=== PATIENT | female | born 1955 | race Caucasian/White ===

== ENCOUNTER 2020-04-06 10:33 | Outpatient (CLI) | payer MEDICARE, OTHER, SELFPAY ==
--- NOTE | 2020-04-11 21:52 | WPDSIXMINUTE ---
Six Minute Walk Six Minute Walk: DOS: 04/06/2020 REQUESTING: Dr. Rebecca Yepez REASON FOR TESTING: Severe COPD; Phase 2 Pulmonary rehab SIX MINUTE WALK This test was conducted per ATS guidelines. The initial saturation was 95% on 2 L/min at the start of the test. Initial pulse was 92 beats per minute. The patient walked 1000 feet / 304 meters. O2 was increased to 3 L/minute at the 3 minute robert then increased to 4 L/min at the 4 minute robert. The final saturation was 88% on 4 L/min, and pulse was 130. The patient did not stop to rest. IMPRESSION: Supplemental oxygen at 4 L/min is sufficient with exertion. Distance walked is lower than expected for age. There is no prior study for comparison. Initial saturation was 95% on 2 L/min, suggesting that that she may tolerate a lower O2 flow at rest.
== END 2020-04-06 10:34 | disposition home or self-care (01) ==
PROVIDERS: PCP Internal Medicine
DX: J44.9 Chronic obstructive pulmonary disease, unspecified (principal)
CPT/HCPCS: 94618

== ENCOUNTER 2020-06-28 11:00 | Outpatient (RCR) | payer MEDICARE, OTHER, SELFPAY ==
--- NOTE | 2020-04-22 08:51 | PCCPR ---
PT CXL SESSION TODAY DUE TO UTI
== END 2020-06-28 23:59 | disposition home or self-care (01) ==
LOC: ANHCPREHAB 11:00
PROVIDERS: PCP Internal Medicine
DX: J44.9 Chronic obstructive pulmonary disease, unspecified (principal)
CPT/HCPCS: 97150; G0424

== ENCOUNTER 2020-07-02 10:16 | Outpatient (CLI) | payer MEDICARE, OTHER, SELFPAY ==
--- NOTE | ~2020-07-02 | CT_ITS ---
EXAMINATION:CT lung screening DATE: 07/02/2020 10:41 INDICATION: Personal history of tobacco dependence. Smoker who quit 12 years ago with 76 pack year hi story. TECHNIQUE: Computed tomography (CT) of the chest was performed without intravenous contrast. Automate d exposure control and iterative reconstruction technique were employed. The dose-length product (DLP ) was 147.67 mGy-cm. COMPARISON: None. FINDINGS: There is severe emphysema. There is mild atelectasis bilaterally. There is a 2 mm nodule in right upper lobe. There is a 2 mm nodule in right lower lobe. No pleural effusion. The heart size is normal. There are coronary artery calcifications. No pericardial effusion. The central pulmonary art eries are enlarged, consistent with pulmonary arterial hypertension. There is diffuse hepatic steatos is. There is severe thoracic spondylosis. There is chronic height loss of multiple vertebral bodies. IMPRESSION: 1. Lung-RADS category 2: Benign appearance or behavior. Continue annual screening with noncontrast lo w-dose chest CT in 12 months. Reviewed, dictated and finalized at location A. [employer] IMPRESSION: 1. Lung-RADS category 2: Benign appearance or behavior. Continue annual screeni ng with noncontrast low-dose chest CT in 12 months.
== END 2020-07-02 10:17 | disposition home or self-care (01) ==
PROVIDERS: PCP Internal Medicine; Visit Provider Internal Medicine
DX: Z12.2 Encounter for screening for malignant neoplasm of respiratory organs (principal); Z87.891 Personal history of nicotine dependence
CPT/HCPCS: G0297

== ENCOUNTER 2020-07-11 13:30 | Outpatient (RCR) | payer MEDICARE, OTHER, SELFPAY | END 2020-07-11 19:16 | disposition home or self-care (01) | LOC: ANHCPREHAB 13:30 | PROVIDERS: PCP Internal Medicine | DX: J44.9 Chronic obstructive pulmonary disease, unspecified (principal) | CPT/HCPCS: 97150; G0424 ==

== ENCOUNTER 2020-08-11 11:04 | Outpatient (CLI) | payer MEDICARE, OTHER, SELFPAY ==
--- NOTE | 2020-08-11 17:24 | WPDSIXMINUTE ---
Six Minute Walk This is a 6 minutes walk for exertional dyspnea. Findings: The patient's resting oxygen saturation on home setting of 4 L NC oxygen was 76% and her heart rate was 86 bpm. Patient ambulated for 396.2 meters and oxygen saturation remained 93-99%. Heart rate at the end of the study was 115 bpm. There are no prior studies for comparison.
== END 2020-08-11 11:05 | disposition home or self-care (01) ==
PROVIDERS: PCP Internal Medicine
DX: J44.9 Chronic obstructive pulmonary disease, unspecified (principal)
CPT/HCPCS: 94618

== ENCOUNTER 2021-06-23 09:13 | Outpatient (CLI) | payer MEDICARE, OTHER, SELFPAY ==
--- NOTE | ~2021-06-23 | CT_ITS ---
EXAMINATION:CT lung screening DATE: 06/23/2021 10:08 INDICATION: Personal history of tobacco dependence. Smoker who quit 13 years ago with 120 pack year h istory. TECHNIQUE: Computed tomography (CT) of the chest was performed without intravenous contrast. Automate d exposure control and iterative reconstruction technique were employed. The dose-length product (DLP ) was 116.95 mGy-cm. COMPARISON: CT 07/02/2020 FINDINGS: There is severe emphysema. There is mild atelectasis bilaterally. There is a stable 2 mm no dule in right upper lobe. There is a stable 2 mm nodule in right lower lobe. No pleural effusion. The heart size is normal. There are coronary artery calcifications. No pericardial effusion. Main pulmon ning artery is enlarged, consistent with pulmonary arterial hypertension. There is moderate thoracic s pondylosis. There is chronic height loss of multiple vertebral bodies. IMPRESSION: 1. Lung-RADS category 2: Benign appearance or behavior. Continue annual screening with noncontrast lo w-dose chest CT in 12 months. Reviewed, dictated and finalized at location A. [employer] IMPRESSION: 1. Lung-RADS category 2: Benign appearance or behavior. Continue annual screeni ng with noncontrast low-dose chest CT in 12 months.
== END 2021-06-23 09:14 | disposition home or self-care (01) ==
LOC: ANHIMG 09:23
PROVIDERS: PCP Internal Medicine
DX: Z12.2 Encounter for screening for malignant neoplasm of respiratory organs (principal); Z87.891 Personal history of nicotine dependence; J43.9 Emphysema, unspecified
CPT/HCPCS: 71271

== ENCOUNTER 2021-06-24 12:31 | Emergency (ER) | payer MEDICARE, OTHER, SELFPAY ==
--- NOTE | ~2021-06-24 | XR_ITS ---
EXAMINATION: XR chest 2V EXAM DATE: 06/24/2021 13:16 INDICATION: Congestion, cough, COPD. Symptoms 2 days. TECHNIQUE: Frontal and lateral projections of the chest obtained and reviewed. Comparison is made to prior examination from 05/20/2012. FINDINGS: The lungs are hyperinflated which can be seen with chronic obstructive pulmonary disease ( a clinical diagnosis of functional impairment), but is not diagnostic of it. The lungs are clear. Th ere are no pleural effusions. The cardiomediastinal silhouette is within normal limits. There is no pneumothorax suspected. The bones and soft tissues are unremarkable. There is aortic arterioscler osis. IMPRESSION: 1. No acute cardiopulmonary findings. 2. Hyperinflation. Reviewed, dictated and finalized at location A. [employer]
--- NOTE | 2021-06-24 12:37 | ED.URI ---
HPI - URI/Sore Throat General Chief Complaint: Chest Pain Stated Complaint: Chest Congestion/Cough Time Seen by Provider: 06/24/21 12:37 Source: patient and RN notes reviewed History of Present Illness HPI Narrative: Patient is a 65-year-old female who presents the urgent care with complaints of chest congestion, chest tightness and cough. Patient states that she has had some upper respiratory symptoms with postnasal drainage since . Patient states that these are her normal symptoms whenever she gets sick however she has not been sick in some time . Patient denies of any known exposure to Covid and has had a Covid vaccine. Patient states that she has been taking Tylenol for low-grade fever otherwise has not taken anything [id number] for her symptoms. Patient denies of any chest pain. States that she does have COPD and uses oxygen, 2 L, at home. Patient states she is supposed to be wearing it outside of the home and does not . Denies of any radiation of the chest tightness. No acute distress noted. Patient aware of the plan of care. Some parts of this dictation were generated by voice recognition software and may contain typographical and/or grammatical inaccuracies. Related Data Home Medications Medication Instructions Recorded Confirmed alprazolam 0.25 mg PO HS PRN 03/31/20 03/31/20 aspirin 81 mg PO DAILY 03/31/20 03/31/20 cholecalciferol (vitamin D3) 100 mcg PO DAILY 03/31/20 03/31/20 [Vitamin D3] clopidogrel [Plavix] 75 mg PO DAILY 03/31/20 03/31/20 furosemide 40 mg PO DAILY 03/31/20 03/31/20 levothyroxine 137 mcg PO DAILY 03/31/20 03/31/20 metformin 500 mg PO DAILY 03/31/20 03/31/20 pantoprazole 40 mg PO QAM PRN 03/31/20 03/31/20 perphenazine 2 mg PO HS 03/31/20 03/31/20 polyethylene glycol 3350 [Miralax] 17 g PO DAILY 03/31/20 03/31/20 potassium chloride 10 meq PO DAILY 03/31/20 03/31/20 pravastatin 80 mg PO DAILY 03/31/20 03/31/20 vitamin B complex 1 tablet WEEKLY 03/31/20 03/31/20 amitriptyline 25 mg PO HS 04/01/20 04/01/20 Allergies Allergy/AdvReac Type Severity Reaction Status Date / Time levofloxacin [From Levaquin] Allergy Unknown Verified 06/24/21 12:53 Review of Systems Review of Systems: CONSTITUTIONAL: Reports of fevers and chills EYES: Denies visual changes, redness, or discharge. ENT: Denies rhinorrhea, congestion, sore throat, or otalgia. Reports of postnasal drainage CARDIOVASCULAR: Denies chest pain, palpitations, or edema. RESPIRATORY: Reports of increased dyspnea and cough GASTROINTESTINAL: Denies abdominal pain, nausea, vomiting, or diarrhea. GENITOURINARY: Denies dysuria or hematuria. SKIN: Denies rash or itching. MUSCULOSKELETAL: Denies back pain, joint pain, or myalgia. NEUROLOGIC: Denies headache, numbness, or weakness. All other systems reviewed are negative, except as documented in HPI. PMFSH Social History Social History Smoking packs per day: 2 Smoking cigarettes per day: 40.0 Years smoked: 38 Smoking pack-years: 76.00 Smoking status: Former smoker Tobacco type: cigarettes Smoking end date: 06/05/20 Gender identity (if verbalized by the patient): Female Comments At the time of my signature, I reviewed and agree with the nursing past medical, surgical, social, and family history. There is no relevant family history pertinent to the patient complaint. Exam Narrative: GENERAL: This is a well-nourished, well-developed patient, in no apparent distress. HEAD: normocephalic, atraumatic. EYES: PERRL. Sclera clear/white. Vision is grossly intact. EARS: External ears normal, auditory canals clear and without drainage, TMs normal without perforation. Hearing grossly intact. NOSE: External nose normal with no obvious nasal discharge, nares without redness, clear rhinorrhea. THROAT: Mucous membranes moist, posterior pharynx clear. Moderate postnasal drainage NECK: Neck supple CARDIOVASCULAR: Regular rate and rhythm RESPIRATORY: Decreased lung sounds in t
[2021-06-24 12:54] VITALS: BP 148/77; PULSE 102; RESP 22; TEMP 37.1; O2SAT 89
[2021-06-24] MEDS: predniSONE 20 MG TABLET 60 MG PO (13:43)
--- NOTE | 2021-06-26 14:33 | ECG_ITS ---
Measurements Intervals [place] Rate: 89 P: 78 CA: 182 QRS: 82 QRSD: 100 T: 74 QT: 355 QTc: 434 Interpretive Statements SINUS RHYTHM INCOMPLETE RIGHT BUNDLE BRANCH BLOC BORDERLINE ST-T WAVE ABNORMALITY- DIFFUSE LEADS BASELINE ARTIFACT- I, II, III, AVF, V1-V6 BORDERLINE ECG Electronically Signed On 06-26-2021 15:10:39 SKEIN DRIER by Edgardo Brown D.O.
== END 2021-06-24 13:49 | disposition home or self-care (01) ==
PROVIDERS: Emergency Provider Nurse Practitioner Family
DX: J44.1 Chronic obstructive pulmonary disease with (acute) exacerbation (principal); Z87.891 Personal history of nicotine dependence; Z86.73 Personal history of transient ischemic attack (TIA), and cerebral infarction without residual deficits; E78.00 Pure hypercholesterolemia, unspecified; G47.30 Sleep apnea, unspecified; E03.9 Hypothyroidism, unspecified; F32.9 Major depressive disorder, single episode, unspecified; R73.03 Prediabetes; Z20.822 Contact with and (suspected) exposure to COVID-19
CPT/HCPCS: 71046; 87426; 93005; 99213; C9803; G0463; J7512

== ENCOUNTER 2024-01-02 09:19 | Emergency (ER) | payer MEDICARE, SELFPAY ==
[2024-01-02 09:28] VITALS: BP 154/86; PULSE 109; RESP 18; TEMP 38.3; O2SAT 97
--- NOTE | 2024-01-02 09:32 | ED.URI ---
HPI - URI/Sore Throat General Chief Complaint: Upper Respiratory Infection Stated Complaint: chills/aches/cough/chest heavy Time Seen by Provider: 01/02/24 09:32 Source: patient, RN notes reviewed and old records reviewed Mode of arrival: ambulatory Limitations: no limitations History of Present Illness HPI Narrative: 68-year-old female to Express Care for complaint of body aches, chills, dry cough, fever that started yesterday. Patient treated at home with Tylenol last night and reports improvement. patient reports exposure recently to someone who is COVID positive. Patient denies shortness of breath, chest pain. Patient hypertensive, tachycardic, febrile in triage. Patient appears tired in exam room. Respirations even and nonlabored. no signs of acute distress. Related Data Home Medications Medication Instructions Recorded Confirmed aspirin 81 mg chewable tablet 81 mg PO DAILY 03/31/20 01/02/24 clopidogrel 75 mg tablet (Plavix) 75 mg PO DAILY 03/31/20 01/02/24 furosemide 40 mg tablet 40 mg PO BID 03/31/20 01/02/24 metformin 500 mg tablet 500 mg PO DAILY 03/31/20 01/02/24 polyethylene glycol 3350 17 17 g PO DAILY 03/31/20 01/02/24 gram/dose oral powder (Miralax) vitamin B complex 1 tablet PO WEEKLY 03/31/20 01/02/24 amitriptyline 25 mg tablet 25 mg PO HS 04/01/20 01/02/24 ezetimibe 10 mg PO DAILY 06/24/21 01/02/24 pantoprazole 40 mg tablet,delayed 40 mg PO DAILY 06/24/21 01/02/24 release potassium chloride 10 mEq 10 meq PO DAILY 06/24/21 01/02/24 tablet,extended release pravastatin 80 mg tablet 80 mg PO DAILY 06/24/21 01/02/24 quetiapine 25 mg tablet 25 mg PO HS 06/24/21 01/02/24 alprazolam 0.5 mg tablet 0.5 mg PO TID PRN Anxiety 01/02/24 01/02/24 levothyroxine 112 mcg tablet 112 mcg PO DAILY 01/02/24 01/02/24 Allergies Allergy/AdvReac Type Severity Reaction Status Date / Time levofloxacin [From Levaquin] Allergy Hives Verified 01/02/24 09:34 Review of Systems Review of Systems: All systems reviewed & are unremarkable except as noted in HPI and below Constitutional: Constitutional: Reports as per HPI, Reports body ache(s), Reports chills and Reports fever(s) Eyes: Eyes: Reports no additional eye complaints ENT: Reports system reviewed and no additional complaints, except as documented Cardiovascular: Cardiovascular: Reports no additional cardiovascular complaints, Denies chest pain and Denies dyspnea Respiratory: Respiratory: Reports no additional respiratory complaints, Reports cough and Denies dyspnea Musculoskeletal: Musculoskeletal: Reports no additional musculoskeletal complaints Neurologic: Reports system reviewed and no additional complaints, except as documented Psychiatric: Psychiatric: Reports no additional psychiatric complaints PMFSH Social History Social History Smoking packs per day: 2 Smoking cigarettes per day: 40.0 Years smoked: 38 Smoking pack-years: 76.00 Smoking status: Former smoker Tobacco type: cigarettes Smoking end date: 06/05/20 Gender identity (if verbalized by the patient): Female Comments At the time of my signature, I reviewed and agree with the nursing past medical, surgical, social, and family history. There is no relevant family history pertinent to the patient complaint. Exam Const: General: cooperative, no acute distress, well developed, alert, tired appearing, uncomfortable and well nourished Nutritional Appearance: well nourished Orientation/consciousness: patient oriented x3 Limitations: no limitations HENMT: Head: normal to inspection Ears: external ears normal Face/Nose/Sinus: Normal external nose present, Normal nares present, normal facial exam, No erythema and No edema Face and sinus: normal facial exam, no erythema and no edema Mouth: Yes Normal oral and palatal mucosa present Throat: posterior oropharynx abnormal erythema Eyes: General: appearance normal, both ey
== END 2024-01-02 10:00 | disposition home or self-care (01) ==
PROVIDERS: Emergency Provider Nurse Practitioner Family; PCP Internal Medicine
DX: U07.1 COVID-19 (principal); Z87.891 Personal history of nicotine dependence; Z79.82 Long term (current) use of aspirin; Z86.73 Personal history of transient ischemic attack (TIA), and cerebral infarction without residual deficits; E78.00 Pure hypercholesterolemia, unspecified; J44.9 Chronic obstructive pulmonary disease, unspecified; G47.30 Sleep apnea, unspecified; R73.03 Prediabetes; E03.9 Hypothyroidism, unspecified; F32.A Depression, unspecified
CPT/HCPCS: 87426; 87804; 99213; G0463

== ENCOUNTER 2024-05-30 09:22 | Emergency (ER) | payer MEDICARE, SELFPAY ==
--- NOTE | ~2024-05-30 | XR_ITS ---
EXAMINATION: XR chest 2V DATE: 05/30/2024 10:03 INDICATION: Shortness of breath. TECHNIQUE: Frontal and lateral views of the chest were obtained. COMPARISON: Chest 2 views 06/24/2021, chest CT 06/23/2021 FINDINGS: There is mild atelectasis at the lung bases. No pleural effusion or pneumothorax. The heart size is normal. There is mild chronic anterior wedging of multiple mid thoracic vertebral bodies. IMPRESSION: 1. Mild atelectasis at the lung bases. Reviewed, dictated and finalized at location A.
[2024-05-30 09:36] VITALS: BP 143/73; PULSE 96; RESP 20; TEMP 37.2; O2SAT 92
--- NOTE | 2024-05-30 09:43 | ED_ITS ---
HPI - URI/Sore Throat General Chief Complaint: Upper Respiratory Infection Stated Complaint: Chills/Chest Congestion Time Seen by Provider: 05/30/24 09:46 Source: patient, RN notes reviewed and old records reviewed Mode of arrival: ambulatory Limitations: no limitations History of Present Illness HPI Narrative: 68 year old female who presents to [facility] care with complaints of dry cough, chills,low grade fever, sneezing, chest tightness and burning with ear pain and sore throat since Saturday. Patient does have history of COPD and using daily inhalers and also using rescue inhaler and nebulizer. MD elicited complaint: fever, cough, sore throat, rhinorrhea, nasal congestion and other (chills) Pertinent past history: COPD and other (FORMER tobacco abuse) Onset (ago): day(s) (5) Consistency: constant Pain scale (0-10): 5 Description of mucous: clear Able to tolerate fluids by mouth: Yes Treatments prior to arrival: acetaminophen and other (inhalers and Albuterol inhaler and nebs) Related Data Home Medications Medication Instructions Recorded Confirmed clopidogrel 75 mg tablet (Plavix) 75 mg PO DAILY 03/31/20 05/30/24 furosemide 40 mg tablet 40 mg PO BID 03/31/20 05/30/24 metformin 500 mg tablet 500 mg PO BID 03/31/20 05/30/24 vitamin B complex 1 tablet PO WEEKLY 03/31/20 05/30/24 amitriptyline 25 mg tablet 25 mg PO HS 04/01/20 05/30/24 pantoprazole 40 mg tablet,delayed 40 mg PO DAILY 06/24/21 05/30/24 release potassium chloride 10 mEq 10 meq PO DAILY 06/24/21 05/30/24 tablet,extended release pravastatin 80 mg tablet 80 mg PO DAILY 06/24/21 05/30/24 quetiapine 25 mg tablet 25 mg PO HS 06/24/21 05/30/24 alprazolam 0.5 mg tablet 0.5 mg PO TID PRN Anxiety 01/02/24 05/30/24 levothyroxine 112 mcg tablet 112 mcg PO DAILY 01/02/24 05/30/24 aspirin 81 mg tablet,delayed 81 mg PO DAILY 05/30/24 05/30/24 release (Adult Low Dose Aspirin) ezetimibe 10 mg tablet 10 mg PO DAILY 05/30/24 05/30/24 Allergies Allergy/AdvReac Type Severity Reaction Status Date / Time levofloxacin [From Levaquin] Allergy Hives Verified 05/30/24 09:54 Review of Systems Review of Systems: CONSTITUTIONAL: Reports malaise, chills, sweats, low grade fever. EYES: Denies visual changes, redness, or discharge. ENT: Reports rhinorrhea, congestion, no sinus pain,bilateral otalgia and positive for sore throat. CARDIOVASCULAR: Denies chest pain reports tightness, no palpitations, or edema. RESPIRATORY: Reports cough.?Reports dyspnea.with exertion GASTROINTESTINAL: Denies abdominal pain, nausea, vomiting, diarrhea SKIN: Denies rash or itching. MUSCULOSKELETAL: Denies myalgia. NEUROLOGIC: Denies headache. All systems reviewed & are unremarkable except as noted in HPI and below PMFSH Past Medical History Medical History Anxiety Constipation COPD (chronic obstructive pulmonary disease) CVA (cerebral vascular accident) Depression Elevated cholesterol Hypertension Hypothyroid EV on CPAP with oxygen at night Surgical History Surgical History H/O: hysterectomy Social History Social History Smoking packs per day: 2 Smoking cigarettes per day: 40.0 Years smoked: 38 Smoking pack-years: 76.00 Smoking status: Former smoker Tobacco type: cigarettes Smoking end date: 06/05/20 Gender identity (if verbalized by the patient): Female Comments At time of signature, agree with nursing past medical, surgical, social and family history. There is no relevant family history pertinent to the presenting complaint Exam Narrative: GENERAL: Chronic ill -appearing, well-nourished, and in no acute distress. HEAD: Normocephalic EYES: PERRLA, conjunctivae clear ENT: Nares clear, turbinates edematous and erythematous, clear discharge. Mucous membranes moist. TM pearly lyons with dull light reflex bilaterally; no tragal tenderness. Oropharynx erythematous without lesions. Tonsils not enlarged and without exudate, no drooling, no hoarseness, no trismus, uvula midline.some post nasal discharge NECK: Supple. No lymphadenopathy CHEST: Decreased faint crackles lung bases on auscultation, breath sounds equal. No wheezing, rhonchi, bases rales, no stridor. No respiratory distress, speaks in full sentences, dry cough noted, SAO2 92% on room air no tachypnea noted, history of COPD HEART: Regular rate and rhythm. No murmur heard. SKIN: Warm, dry, no rash. NEURO: Alert and oriented x3. PSYCH: Normal mood and affect Course Course Emergency Course: Patient is aware of diagnosis, understands and agrees to treatment plan.? Anticipatory guidance given.? Patient agrees to follow-up as directed and is aware of reasons to seek care at the emergency department. Portions of this record may have been created with voice recognition software Level of Care: Express Care Visit Vital Signs Vital signs: Vital Signs Temperature 37.2 C 05/30/24 09:36 Pulse Rate 96 05/30/24 09:36 Respiratory Rate 20 05/30/24 09:36 Blood Pressure 143/73 H 05/30/24 09:36 Pulse Oximetry 92 05/30/24 09:36 Oxygen Delivery Room Air 05/30/24 09:36 Temperature 37.2 C 05/30/24 09:36 Pulse Rate 96 05/30/24 09:36 Respiratory Rate 20 05/30/24 09:36 Blood Pressure 143/73 H 05/30/24 09:36 Pulse Oximetry 92 05/30/24 09:36 Oxygen Delivery Room Air 05/30/24 09:36 Reviewed MDM - URI/Sore Throat MDM Narrative Medical decision making narrative: Differential diagnosis considered: Mccollum virus, strep pharyngitis, allergic rhinitis, upper respiratory tract infection, sinusitis, rhinosinusitis, nasopharyngitis. viral pharyngitis, otitis media, otitis externa, pneumonia, bronchitis, viral cough syndrome, viral syndrome, and influenza.? Exam findings show no acute concerns or changes; patient is non-toxic appearing and is in no distress.? Patient is appropriate for outpatient treatment and follow-up. Differential Diagnosis Differential diagnosis: Likely upper respiratory infection, viral infection, influenza, pharyngitis and other (Strep pharyngitis, COVID, Exacerbation COPD) Medical Records Attestation: I reviewed the patient's medical records. Lab Data Attestation: I reviewed the patient's lab results. Lab results narrative: strep screen negative culture sent,Influenza A negative, Influenza B negative, COVID antigen negative. Labs: Lab Results 05/30/24 Range/Units 09:58 POC Influenza A Ag Negative (Negative) POC Influenza B Ag Negative (Negative) POC SARS CoV-2 Ag Negative (Negative) POC Grp A Strep Screen Negative (Negative) Imaging Data My impression: mild atelectasis lung bases Radiologist's impression: [place] [address] [place] [address] XRay Report Signed Patient: Divya Pepe : 1955 MR#: [id number] Age: 68 Acct:[id number] Loc: [facility] ADM Date: 05/30/24Attending Dr: Ordering Physician: Codi Deng APRN Date of Service: 05/30/24 Procedure(s): XR chest 2V Accession Number(s): [id number] cc: Ailyn, Pernell Silver MD; Codi Deng APRN~ EXAMINATION: XR chest 2V DATE: 05/30/2024 10:03 INDICATION: Shortness of breath. TECHNIQUE: Frontal and lateral views of the chest were obtained. COMPARISON: Chest 2 views 06/24/2021, chest CT 06/23/2021 FINDINGS: There is mild atelectasis at the lung bases. No pleural effusion or pneumothorax. The heart size is normal. There is mild chronic anterior wedging of multiple mid thoracic vertebral bodies. IMPRESSION: 1. Mild atelectasis at the lung bases. Reviewed, dictated and finalized at location A. Dictated By: Randy Rider MD 05/30/24 1008 Signed By: <Electronically signed by Randy Rider MD in OV> Critical Care Time Critical Care Time Critical Care Time: No Discharge Plan Discharge Clinical Impression: Congestion of paranasal sinus, Acute cough Patient Disposition: Home, Self-Care Condition: Stable Instructions: Antibiotic Form, Upper Respiratory Infection (ED), Acute Cough (ED) Additional Instructions: Increase fluids especially juices and water Grnt-glh-nobmoyo cough and cold medicine of your choice for your symptoms Zyrtec Claritin or Brenda daily with Coricidin brand decongestant Continue your inhaler/nebulizer as directed Steroids as directed--take with food heat to the face 20-30 minutes 4-6 times a day for pain Salt water gargles, throat lozenges or throat sprays as desired Antibiotic as directed--finished the medication If your symptoms persist, change or worsen significantly before you can contact your personal physician then please, without delay, go to the emergency department for further evaluation. Follow-up with PCP in 7-10 days or sooner if needed Follow up with PCP soon in regards to your blood pressure which is elevated above threshold for referral. Blood pressure above 120/80 may indicate pre- hypertension. Prescriptions: New amoxicillin-pot clavulanate 875-125 mg tablet 1 tablet PO Q12H Qty: 20 0RF Rx Instructions: take probiotics or eat activa yogurt while on this medication prednisone 20 mg tablet 20 mg PO BID Qty: 10 0RF benzonatate 200 mg capsule 200 mg PO TID PRN (Reason: cough) Qty: 20 0RF No Action quetiapine 25 mg Tablet 25 mg PO HS potassium chloride 10 mEq tablet extended release 10 meq PO DAILY pravastatin 80 mg tablet 80 mg PO DAILY pantoprazole 40 mg tablet,delayed release (DR/EC) 40 mg PO DAILY albuterol sulfate 90 mcg/actuation HFA aerosol inhaler 2 puff INHALATION QID PRN (Reason: shortness of breath or wheezing) Qty: 8 0RF levothyroxine 112 mcg Tablet 112 mcg PO DAILY alprazolam 0.5 mg tablet 0.5 mg PO TID PRN (Reason: Anxiety) ezetimibe 10 mg tablet 10 mg PO DAILY aspirin [Adult Low Dose Aspirin] 81 mg Tablet,Delayed Release (Dr/Ec) 81 mg PO DAILY furosemide 40 mg Tablet 40 mg PO BID metformin 500 mg Tablet 500 mg PO BID clopidogrel [Plavix] 75 mg Tablet 75 mg PO DAILY vitamin B complex Tablet 1 tablet PO WEEKLY amitriptyline 25 mg Tablet 25 mg PO HS Follow-up/Referrals: Ailyn,Pernell Silver MD [Primary Care Provider] - Time of Disposition: 10:23 Quality [place] Coma Scale Eyes: Open Verbal: Oriented and Alert Motor: Follows Commands [place] Coma Total Score: 15
[2024-05-30 10:00] LABS: EDCOVIDSCREEN Negative (Negative); EDINFLUASCREEN Negative (Negative); EDINFLUBSCREEN Negative (Negative); EDSTREPNEGPOS1 Negative (Negative)
== END 2024-05-30 10:25 | disposition home or self-care (01) ==
PROVIDERS: Emergency Provider Registered Nurse; PCP Internal Medicine
DX: R09.81 Nasal congestion (principal); R05.1 Acute cough; Z20.822 Contact with and (suspected) exposure to COVID-19; J44.9 Chronic obstructive pulmonary disease, unspecified; I10 Essential (primary) hypertension; E78.00 Pure hypercholesterolemia, unspecified; E03.9 Hypothyroidism, unspecified; G47.33 Obstructive sleep apnea (adult) (pediatric); F41.9 Anxiety disorder, unspecified; Z86.73 Personal history of transient ischemic attack (TIA), and cerebral infarction without residual deficits; Z87.891 Personal history of nicotine dependence; Z79.82 Long term (current) use of aspirin; Z79.01 Long term (current) use of anticoagulants
CPT/HCPCS: 71046; 87081; 87426; 87804; 87880; 99213; G0463